=== PATIENT | female | born 1995 | race Caucasian/White ===

== ENCOUNTER 2016-10-24 17:47 | Emergency (ER) | payer OTHER ==
[~2016-10-24] VITALS: Ht 165.1 cm; Wt 61.5 kg
[~2016-10-24 17:47] MED LIST: BCPILLS PO
[2016-10-24 17:50] VITALS: TEMP 36.9; Ht 165.1 cm; Wt 61.5 kg
[2016-10-24] MEDS ORDERED: ETON1IMP2 EP (18:15)
[2016-10-24 18:26] LABS: URINE APPEARANCE CLOUDY (CLEAR); URINE BILIRUBIN NEG (NEG); URINE COLOR YELLOW; URINE EPITHELIAL CELL AUTO >30 /lpf (0-5); URINE NITRITE NEG (NEG); URINE PH 7.5 (4.5-7.5); UROBILINOGEN NEG (NEG); ZZUR CULT IF INDIC CLEAN CATCH NO
[2016-10-24 18:29] LABS: MANUAL MICROSCOPIC REQUIRED? NO; REVIEW REQ? NO
[2016-10-24] MEDS ORDERED: CEFTRIAXONE SOD 350MG/ML 1 GM VIAL IM ONE (19:03)
[2016-10-24] MEDS ORDERED: CEFTRIAXONE SOD INJ 250 MG/ML VIAL IM ONE (19:15)
[2016-10-24] MEDS ORDERED: AZITHROMYCIN 250 MG TAB PO ONE (19:15)
[2016-10-24] MEDS ORDERED: METR0.757 PV (19:42)
--- NOTE | 2016-10-24 19:43 | EMERGENCY ROOM VISIT NOTE ---
History First contact with patient: 17:59 Chief Complaint: HIP PAIN Stated Complaint: HIP,LOW BACK/STOMACH PAIN History of Present Illness The patient is a 21 year old female who presents to the Emergency Room with complaints of pain in her lower abdomen and urinary symptoms. The patient states that she has had intermittent pain in her lower abdomen with radiation to the back for the past several days. The patient states the pain sometimes radiates into her hips. She describes the pain as a cramping sensation and rates the discomfort a 3/10. The patient has also had trouble urinating and dysuria. She reports she has had abnormal yellowish vaginal discharge. She took a test at home which was negative. She has had a new sexual partner recently and is unsure of his sexual history. She denies any back pain , nausea, vomiting, fevers or chills. Review of Systems A complete 10-point Review of Systems was discussed with the patient, with pertinent positives and negatives listed in the History of Present Illness. All remaining Review of Systems questions can be considered negative unless otherwise specified. Social History Smoking Status: Never Smoker Current/Historical Medications Scheduled Etonogestrel (Nexplanon), 68 MG EP CONTINOUS Metronidazole Vaginal (Metronidazole Vaginal), 1 APPL PV HS Allergies Coded Allergies: [place] (Verified Allergy, Severe, ANAPHYLAXIS, 10/24/16) Physical Exam Vital Signs Date Time Temp Pulse Resp B/P Pulse Ox O2 Delivery O2 Flow Rate FiO2 10/24/16 19:49 85 16 124/74 99 10/24/16 17:50 36.9 78 17 126/79 96 Room Air Physical Exam VITALS: Vitals are noted on the nurse's note and reviewed by myself. Vital signs stable. GENERAL: This is a 21-year-old female, in no acute distress, nondiaphoretic, well-developed well-nourished. SKIN: Capillary reflex less than 2 seconds. HEART: Regular rate and rhythm without murmurs gallops or rubs. LUNGS: Clear to auscultation bilaterally without wheezes, rales or rhonchi. ABDOMEN: Positive bowel sounds x 4. Soft, nontender to palpation. PELVIC: External genitalia unremarkable. There is a moderate amount of whitish vaginal discharge. No evidence of cervicitis. No cervical motion or adnexal tenderness. NEURO: Patient was alert and oriented to person place and time. Medical Decision & Procedures Laboratory Results Test 10/24/16 00:00 10/24/16 18:10 Urine Color YELLOW Urine Appearance CLOUDY (CLEAR) Urine pH 7.5 (4.5-7.5) Urine Specific [place] 1.020 (1.000-1.030) Urine Protein NEG (NEG) Urine Glucose (UA) NEG (NEG) Urine Ketones NEG (NEG) Urine Occult Blood NEG (NEG) Urine Nitrite NEG (NEG) Urine Bilirubin NEG (NEG) Urine Urobilinogen NEG (NEG) Urine Leukocyte Esterase SMALL (NEG) Urine WBC (Auto) 1-5 /hpf (0-5) Urine RBC (Auto) 0-4 /hpf (0-4) Urine Hyaline Casts (Auto) 1-5 /lpf (0-5) Urine Epithelial Cells (Auto) >30 /lpf (0-5) Urine Bacteria (Auto) NEG (NEG) Urine Test NEG (NEG) Date/Time Source Procedure Growth Status 10/24/16 00:00 Vaginal Swab Trichomonas Preparation - Final Complete Medications Administered Medications (Trade) Dose Ordered Sig/Maribel Route Start Time Stop Time Status Last Admin Dose Admin Azithromycin (Zithromax Tab) 1,000 mg NOW ONCE PO 10/24/16 19:15 10/24/16 19:16 DC 10/24/16 19:14 1,000 MG Ceftriaxone Sodium (Rocephin Im) 997.5 mg STK-MED ONCE IM 10/24/16 19:03 10/24/16 19:07 DC 10/24/16 19:14 250 MG Medical Decision Differential diagnosis includes sexual transmitted infection, vaginal candidiasis, bacterial vaginosis, urinary tract infection, among others. The patient was evaluated as above. Urinalysis was not suggestive of infection. Urine was negative. Pelvic exam was performed and did show a moderate amount of discharge. Cultures were obtained and are pending. As the patient has had new sexual partners, she was offered empiric treatment for gonorrhea and chlamydia and did choose to proceed. She was given 250 mg Rocephin IM and 1 g Zithromax orally. Her discharge was suggestive of BV, the patient was given a prescription for Metrogel. The patient will be contacted if culture results become positive. She was instructed to follow-up with OB/ [facility] [facility]HICLE OPERATOR. She verbalized understanding of my assessment and treatment plan and was discharged home in good condition. Impression Primary Impression: Vaginal discharge Departure Information Dispostion Home / Self-Care Condition GOOD Prescriptions Metronidazole Vaginal (METRONIDAZOLE VAGINAL) 0.75 % Gel 1 APPL PV HS for 5 Days, #70 GM Prov: Estrella Sigala ., DANIEL 10/24/16 Referrals No Doctor, Assigned (PCP) Patient Instructions My [facility] Additional Instructions Use the metronidazole as prescribed. Call for culture results in 2-3 days if you do not hear anything from us sooner. Return to the ED with abdominal pain, fevers, or any worsening or new/ concerning symptoms.
[2016-10-24 19:49] VITALS: BP 124/74; PULSE 85; O2SAT 99
[2016-10-27 00:49] LABS: CHLAMYDIA TRACH RNA*** NOT DETECTED (NOT DETECTED); GC (NEIS GONORRHOEAE)RNA** NOT DETECTED (NOT DETECTED)
== END 2016-10-24 19:52 | disposition home or self-care (01) ==
LOC: C.EDB 17:49
DX: N89.8 Other specified noninflammatory disorders of vagina (principal)

== ENCOUNTER 2017-01-26 22:14 | Emergency (ER) | payer OTHER ==
[~2017-01-26] VITALS: Ht 165.1 cm; Wt 64.5 kg
[~2017-01-26 22:14] MED LIST changes: -BCPILLS PO; +ETON1IMP2 EP
[2017-01-26 22:18] VITALS: Ht 165.1 cm; Wt 64.5 kg
[2017-01-26] MEDS ORDERED: METRONIDAZOLE 250 MG TAB PO STA (23:51)
[2017-01-26] MEDS ORDERED: METR-162 PO (23:55)
[2017-01-27] MEDS ORDERED: AZITHROMYCIN 250 MG TAB PO ONE
[2017-01-27] MEDS ORDERED: CEFTRIAXONE SOD 350MG/ML 1 GM VIAL IM ONE
[2017-01-27 00:15] LABS: URINE APPEARANCE CLEAR (CLEAR); URINE BILIRUBIN NEG (NEG); URINE COLOR YELLOW; URINE NITRITE NEG (NEG); URINE PH 7.5 (4.5-7.5); URINE SPECIFIC GRAVITY 1.022 (1.000-1.030); UROBILINOGEN NEG (NEG); ZZUR CULT IF INDIC CLEAN CATCH NO
[2017-01-27 00:23] VITALS: BP 131/80; PULSE 94; TEMP 36.7; O2SAT 100
[2017-01-27 00:29] LABS: MANUAL MICROSCOPIC REQUIRED? NO; REVIEW REQ? NO
--- NOTE | 2017-01-27 03:34 | EMERGENCY ROOM VISIT NOTE ---
History First contact with patient: 22:24 Chief Complaint: ABDOMINAL PAIN Stated Complaint: LOWER BACK PAIN,CRAMPING,LOWER STOMACH PAIN History of Present Illness The patient is a 21 year old female who presents to the Emergency Room with complaints of lower abdominal cramping off and on for the past 3 weeks. The patient reports having some scant vaginal bleeding over the past 2 days. She is unsure if this is her period because she has Nexplanon and does not get a period. The patient does not have fever or chills. She is sexually active with a monogamous partner, but has not had intercourse in the past few weeks. She was treated for her symptoms with a course of Diflucan as an outpatient. She initially had some vaginal discharge that was thick, but this has minimized , and turned into scant blood. She rates her current discomfort a 2/10. No dysuria. Review of Systems More than 10 systems were reviewed and otherwise negative with the exception of history of present illness. Past Medical/Surgical History No chronic medical disease Family History No pertinent family history Social History Smoking Status: Never Smoker Housing Status: lives with family Current/Historical Medications Scheduled Etonogestrel (Nexplanon), 68 MG EP CONTINOUS Metronidazole (Flagyl), 500 MG PO BID Allergies Coded Allergies: [place] (Verified Allergy, Severe, ANAPHYLAXIS, 10/24/16) Physical Exam Vital Signs Date Time Temp Pulse Resp B/P (MAP) Pulse Ox O2 Delivery O2 Flow Rate FiO2 01/27/17 00:23 36.7 94 18 131/80 100 01/26/17 22:18 36.7 94 18 131/80 100 Room Air Pain Rating (0-10): 0 Physical Exam VITALS: Vitals are noted on the nurse's note and reviewed by myself. Vital signs stable. GENERAL: Well-developed, well-nourished, white female, who is in no acute distress and resting comfortably. Patient is cooperative with the examination. HEAD: Normocephalic atraumatic. NECK: Supple without nuchal rigidity. No lymphadenopathy. No thyromegaly. Cervical spine is nontender. HEART: Regular rate and rhythm without murmurs gallops or rubs. LUNGS: Clear to auscultation bilaterally without wheezes, rales or rhonchi. No retractions or accessory muscle use. ABDOMEN: Positive normal bowel sounds x 4. Soft, nontender, without masses or organomegaly. No guarding or rebound tenderness. : Examination was performed in the presence of female nursing master dyer. Normal-appearing external female genitalia. The vaginal vault is with a scant discharge. The vaginal rugae are very irritated along the posterior and inferior vaginal wall. There is some scant blood in the vault, which appears to be coming from these irritated areas. The cervix was identified and is without blood in the os. No ulcerations or significant drainage noted. MUSCULOSKELETAL: No muscle atrophy, erythema, or edema noted. Full range of motion without joint tenderness in all extremities. Medical Decision & Procedures Laboratory Results Test 01/26/17 23:10 01/26/17 23:35 Urine Color YELLOW Urine Appearance CLEAR (CLEAR) Urine pH 7.5 (4.5-7.5) Urine Specific [place] 1.022 (1.000-1.030) Urine Protein NEG (NEG) Urine Glucose (UA) NEG (NEG) Urine Ketones NEG (NEG) Urine Occult Blood NEG (NEG) Urine Nitrite NEG (NEG) Urine Bilirubin NEG (NEG) Urine Urobilinogen NEG (NEG) Urine Leukocyte Esterase NEG (NEG) Urine Test NEG (NEG) Date/Time Source Procedure Growth Status 01/26/17 23:35 Cervix Swab Trichomonas Preparation - Final Complete Medications Administered Medications (Trade) Dose Ordered Sig/Maribel Route Start Time Stop Time Status Last Admin Dose Admin Ceftriaxone Sodium (Rocephin Im) 1,000 mg NOW ONCE IM 01/27/17 00:00 01/27/17 00:01 DC 01/27/17 00:10 1,000 MG Azithromycin (Zithromax Tab) 1,000 mg NOW ONCE PO 01/27/17 00:00 01/27/17 00:01 DC 01/27/17 00:09 1,000 MG Metronidazole (Flagyl Tab) 500 mg NOW STAT PO 01/26/17 23:51 01/26/17 23:53 DC 01/27/17 00:09 500 MG ED Course Physical exam and history were performed. Nursing notes and EMR were reviewed. Patient appears to have very low pelvic discomfort for the past few weeks. She has been treated for a yeast infection. Urinalysis was performed and is without obvious signs of UTI. She is not . Because of this I did elect to perform a formal pelvic exam. On examination the patient does have irritation throughout the vaginal vault. Cultures were gathered and sent to the lab. Clinically her symptoms correlate with irritation of the vaginal vault from unknown etiology. The patient was given 1 g IM Rocephin and 1 g oral Zithromax here in the department. She will also be empirically started on Flagyl pending cultures. I suspect she is likely experiencing a bacterial infection as the likely etiology of her symptoms. The patient was asked to follow with [facility] for further care and management. She was otherwise invited back to the ER and voiced understanding of this plan. The chart was completed utilizing [employer] Speech Voice Recognition Software. Grammatical errors, random word insertions, pronoun errors, and incomplete sentences are an occasional consequence of this system due to software limitations, ambient noise, and hardware issues. Any formal questions or concerns about the content, text, or information contained within the body of this dictation should be directly addressed to the provider for clarification. . Medical Decision Differential diagnosis: Etiologies such as ectopic , dysfunction uterine bleeding, bleeding dyscrasia, trauma, infection, as well as others were entertained. Impression Primary Impression: Vaginal irritation Departure Information Dispostion Home / Self-Care Condition GOOD Prescriptions Metronidazole (FLAGYL) 500 Mg Tab 500 MG PO BID for 7 Days, #14 TAB Prov: Andi Moreno PA-C 01/26/17 Forms HOME CARE DOCUMENTATION FORM, IMPORTANT VISIT INFORMATION Patient Instructions My [facility] Additional Instructions You were seen and evaluated today on an emergency basis only. This is not a substitute for, or an effort to provide, complete comprehensive medical care. It is not possible to recognize and treat all injuries or illnesses in a single emergency department visit. For this reason it is recommended that you followup with [facility] with any ongoing or persistent symptoms. Metronidazole(Flagyl) 500mg: Take one pill twice daily for 7 days for your infection. DO NOT drink alcohol or take alcohol containing products with this medication. Any medication can cause an allergic reaction, stop the pills immediately and return to the ER for rash, hives, breathing difficulties, or swelling. You are welcome to return to the emergency department anytime with new, worsening, or concerning symptoms.
== END 2017-01-27 00:27 | disposition home or self-care (01) ==
LOC: C.EDB 22:15 → C.EDA 01-27 00:27
DX: N89.8 Other specified noninflammatory disorders of vagina (principal); Z79.3 Long term (current) use of hormonal contraceptives

== ENCOUNTER 2021-03-01 04:41 | Inpatient (IN) ==
[2021-03-01] MEDS ORDERED: LACTATED RINGER'S 1,000 ML IV SCH ×2 (05:15→07:30)
[2021-03-01] MEDS ORDERED: CITRIC ACID/SODIUM CITRATE 15 ML UDC PO ONE (05:15)
--- NOTE | 2021-03-01 05:20 | History & Physical Report ---
Date of Service March 01, 2021 Assessment & Plan (1) Previous delivery affecting , antepartum: 25yo at 37.0 weeks with Hx LTCS x2. Present with gross PROM. 1. Fetus: Reactive NST 2. Labor: Gross ROM. Proceed with LTCS 3. Vitals: WNL (2) Encounter for supervision of normal in multigravida, antepartum: (3) PROM (premature rupture of membranes): History of Present Illness Primary Care Provider: Ben Vega 25yo at 37.0 weeks with Hx LTCS x2. Present with gross PROM. Allergies Allergy/AdvReac Type Severity Reaction Status Date / Time dayana Allergy Severe Anaphylaxis Verified 02/26/21 13:56 Home Medications Medication Instructions Recorded Confirmed Type prenat.vits,aleksandra,[id number] 1 tab PO DAILY 08/03/20 02/26/21 History azithromycin 250 mg PO QAM 02/26/21 02/26/21 History valacyclovir [Valtrex] 1,000 mg PO BID PRN 02/26/21 02/26/21 History Patient History Medical History Mitral regurgitation mild per 05/2018 echo Syncope suspected vasovagal 05/2018 after prolonged standing during wedding; cardiac workup unremarkable and patient told no further evaluation/follow-up needed Surgical History History of section 09/29 DISTRESS DONE UNDER GA 06/2018 Family History Grandmother Family history of diabetes mellitus Grandfather Family history of diabetes mellitus Social History (Updated 08/03/20 @ 14:09 by Sujata Griffith) Smoking Status: Never smoker Second Hand Exposure: No; Hx Alcohol Use: No Hx Substance Use: No Preferred Language: Portuguese Communication Ability: Effective Wrap Yarn Sorter Required: No Beliefs That Will Affect Care: None marital status: marital status details: Miguel Angel(30) [phone] Current Living Situation: Family Current Living Situation Comment: lives with spouse and children Other Information That Helps Us Care for You: No Feels Safe at Home: Yes Assistive Devices: None Physical Exam Constitutional: WD/WN, vitals as above Gastrointestinal (Abdomen): Percussion/Palpation: abdomen soft; abdomen nontender, no guarding and abdomen not rigid Psychiatric: A+Ox3, euthymic affect Genitourinary: OB Exam Abdomen: + vertex Manual OB Exam: + cervical dilation and + amniotic fluid clear OB Exam Monitor Tracing: + external FHT monitor used, + external uterine monitor used, + category I and + normal FHT variability; no early decelerations present, no late decelerations present and no variable decelerations Results & Data ([facility]) Vital Signs (Past 12 Hours) Vital Signs Pulse BP 03/01/21 04:59 82 128/79 Coding Level of Care Code None Diagnoses Previous delivery affecting , antepartum O34.219 Encounter for supervision of normal in multigravida, antepartum Z34.80 PROM (premature rupture of membranes) O42.90
[2021-03-01] MEDS ORDERED: fentaNYL citrate 100 MCG/2 ML VIAL ONE (05:47)
[2021-03-01] MEDS ORDERED: MoRPHine SULFATE PF 1 MG/ML 10 ML AMP/VIAL ONE (05:47)
--- NOTE | 2021-03-01 05:55 | Anesthesiology Consultation ---
Date of Service March 01, 2021 Assessment & Plan (1) Encounter for pre-operative examination: Chart Review Chart Review: Acceptable Risk for Surgery and Patient NOT seen in Pre Admission Testing Consults Requested none History Surgery Operation Date: 03/01/21 06:00 Proposed Procedures p Section in LD - Miguel Angel Aguilar MD Height/Weight Height: 5 ft 5 in Weight: 86.183 kg Allergies Allergy/AdvReac Type Severity Reaction Status Date / Time dayana Allergy Severe Anaphylaxis Verified 02/26/21 13:56 Medications Home Medications Medication Instructions Recorded Confirmed Last Taken prenat.vits,aleksandra,shk-ieos-[id number] 1 tab PO DAILY 08/03/20 02/26/21 Unknown azithromycin 250 mg PO QAM 02/26/21 02/26/21 Unknown valacyclovir [Valtrex] 1,000 mg PO BID PRN 02/26/21 02/26/21 Unknown NPO Date Last Intake of Fluids: 03/01/21 Time Last Intake of Fluids: 02:30 Date Last Intake of Solids: 02/28/21 Time Last Intake of Solids: 18:00 Past Medical History Medical History Mitral regurgitation mild per 05/2018 echo Syncope suspected vasovagal 05/2018 after prolonged standing during wedding; cardiac workup unremarkable and patient told no further evaluation/follow-up needed Past Family History Family History Grandmother Family history of diabetes mellitus Grandfather Family history of diabetes mellitus Past Surgical History Surgical History History of section 2013 22 DISTRESS DONE UNDER GA 06/2018 Social History Smoking Status: Never smoker Hx Alcohol Use: No Hx Substance Use: No substance use type: does not use Physical Exam Vital Signs Last Vital Signs Temp 37.1 C 03/01/21 05:05 Pulse 82 03/01/21 04:59 Resp 18 03/01/21 05:05 BP 128/79 03/01/21 04:59
[2021-03-01] MEDS ORDERED: CITRIC ACID/SODIUM CITRATE 15 ML UDC PO SCH (06:00)
[2021-03-01 06:13] LABS: Hematocrit (blood only) 32.6 % (37-47); Hemoglobin 10.7 g/dL (12.0-16.0); Mean Corpuscular Hemoglobin 28.6 pg (25-34); Mean Corpuscular Volume 87.2 fL (80-100); Mean Platelet Volume 8.8 fL (7.4-10.4); Platelet Count 363 K/uL (130-400); RDW Coefficient of Variation 13.4 % (11.5-14.5); Red Blood Count 3.74 M/uL (4.2-5.4); White Blood Count 15.01 K/uL (4.8-10.8)
[2021-03-01] MEDS ORDERED: ONDANSETRON INJ 2 MG/ML 2 ML VIAL ONE (06:13)
[2021-03-01 06:14] LABS: Mean Corpuscular Hgb Conc 32.8 g/dL (32-36)
[2021-03-01] MEDS: ceFAZolin 2000MG 2,000 MG/15 ML SYR IV ONE ×3 (06:26→10:15)
[2021-03-01] MEDS ORDERED: PHENYLEPHRINE 100MCG/ML 5ML SYR ONE (06:31)
[2021-03-01] MEDS ORDERED: OXYTOCIN 10 UNITS/ML VIAL ONE ×6 (06:47→07:01)
[2021-03-01] MEDS ORDERED: ePHEDrine sulfate 50 MG/ML AMP IV PRN (06:50)
[2021-03-01] MEDS ORDERED: MoRPHine SULFATE PF 1 MG/ML 10 ML AMP/VIAL INT SPINAL ONE (06:50)
[2021-03-01] MEDS ORDERED: ONDANSETRON INJ 2 MG/ML 2 ML VIAL IV PRN (06:50)
[2021-03-01] MEDS ORDERED: PROMETHAZINE HCL 25 MG in SODIUM CHLORIDE 0.9% 50 ML IV PRN (06:50)
[2021-03-01] MEDS ORDERED: HYDROmorphone INJ 0.5 MG/0.5 ML SYR IV PRN (06:50)
[2021-03-01] MEDS ORDERED: NALOXONE HCL 1 MG in SODIUM CHLORIDE 0.9% 1000ML 1,000 ML IV PRN (06:50)
[2021-03-01] MEDS ORDERED: ACETAMINOPHEN 1000 MG/100 ML IV IV PRN (06:50)
[2021-03-01] MEDS ORDERED: NALOXONE HCL 0.08 MG in SYRINGE 1.8 ML IV PRN (06:50)
[2021-03-01] MEDS ORDERED: LACTATED RINGER'S 500 ML IV PRN (06:50)
[2021-03-01] MEDS ORDERED: NALOXONE HCL 0.4 MG/1 ML VIAL/CARP IV PRN (06:50)
[2021-03-01] MEDS ORDERED: SODIUM CHLORIDE 0.9% 1000ML 1,000 ML IV SCH (07:00)
[2021-03-01] MEDS ORDERED: DC INTRASPINAL MORPHINE SCH (07:00)
[2021-03-01] MEDS ORDERED: NO NARCOTICS OR SEDATIVES SCH (07:00)
[2021-03-01] MEDS ORDERED: KETOROLAC 30 MG/ML VIAL ONE (07:05)
[2021-03-01] MEDS ORDERED: diphenhydrAMINE 50 MG/ML VIAL ONE (07:08)
[2021-03-01] MEDS ORDERED: ePHEDrine sulfate 50 MG/ML SYR ONE (07:14)
[2021-03-01] MEDS ORDERED: HYDROCORTISONE ACETATE 25 MG SUPP PR PRN (07:20)
[2021-03-01] MEDS ORDERED: SUPERCREAM 0.870% 15 GM JAR EXT PRN (07:20)
[2021-03-01] MEDS ORDERED: MAGNESIUM HYDROXIDE SUSP 30 ML UDC PO PRN (07:20)
[2021-03-01] MEDS ORDERED: SENNA 8.6 MG TAB PO PRN (07:20)
[2021-03-01] MEDS ORDERED: BENZOCAINE 20% AER SPR 82.5 GM CAN EXT PRN (07:20)
--- NOTE | 2021-03-01 07:20 | Post Operative Brief Note ---
PG Immediate Post Op with CF Date of Surgery March 01, 2021 Pre & Post Diagnosis Operation Date: 03/01/21 06:00 Pre-Op Diagnosis: 1. Previous Delivery 2. Labor; Gross SROM Post-Op Diagnosis: Same as pre op I identified the patient and participated in the time-out.: Yes Procedure Operation Date: 03/01/21 06:00 Actual Procedures p Repeat Section for the of a live female child at 0643 - Miguel Angel Aguilar MD Surgeon Miguel Angel Aguilar MD Textile Designer None Estimated Blood Loss 500 Findings Consistent with Post-Op Diagnosis Specimens Specimen Description: 1.) Placenta - hold 2.) Cord Blood - Drains [place] Catheter
[2021-03-01] MEDS ORDERED: DIPHTHERIA/TETANUS/PERTUSSIS 0.5 ML SYR/VIAL IM ONE (08:00)
[2021-03-01] MEDS: OXYTOCIN 20 UNITS in LACTATED RINGER'S 1,000 ML IV SCH ×2 (09:07→17:41)
[2021-03-01] MEDS: SIMETHICONE 80 MG CHEW PO SCH ×3 (10:16→20:12)
[2021-03-01] MEDS: FERROUS SULFATE 325 MG TAB PO SCH (10:16)
[2021-03-01] MEDS: DOCUSATE SODIUM 100 MG CAP PO SCH ×2 (10:16→20:11)
[2021-03-01] MEDS: PRENATAL VITAMIN 1 TAB PO SCH (10:16)
[2021-03-01] MEDS: KETOROLAC 30 MG/ML VIAL IV PRN ×2 (15:20→22:20)
[2021-03-01] MEDS: diphenhydrAMINE 50 MG/ML VIAL IV PRN ×2 (16:50→22:27)
[2021-03-02] MEDS ORDERED: diphenhydrAMINE 50 MG/ML VIAL IV PRN (00:51)
[2021-03-02] MEDS ORDERED: ONDANSETRON INJ 2 MG/ML 2 ML VIAL IV PRN (00:51)
[2021-03-02] MEDS ORDERED: diphenhydrAMINE Capsule 25 MG CAP PO PRN (00:51)
[2021-03-02] MEDS ORDERED: KETOROLAC 30 MG/ML VIAL IV PRN (00:51)
[2021-03-02] MEDS ORDERED: PROMETHAZINE HCL 25 MG in SODIUM CHLORIDE 0.9% 50 ML IV PRN (00:51)
[2021-03-02] MEDS: oxyCODONE/ACETAMINOPHEN 5mg/325mg TAB PO PRN ×6 (04:06→23:20)
[2021-03-02] MEDS: IBUPROFEN 600 MG TAB PO PRN ×4 (04:06→20:31)
[2021-03-02 06:25] LABS: Basophils # (auto) 0.02 K/uL (0-0.2); Basophils % (auto) 0.1 %; Eosinophils # (auto) 0.11 K/uL (0-0.5); Eosinophils % (auto) 0.8 %; Hematocrit (blood only) 25.9 % (37-47); Hemoglobin 8.4 g/dL (12.0-16.0); Immature Granulocytes # (auto) 0.06 K/uL (0.00-0.02); Immature Granulocytes % (auto) 0.4 %; Lymphocytes # (auto) 2.46 K/uL (1.2-3.4); Lymphocytes % (auto) 17.2 %; Mean Corpuscular Hemoglobin 29.2 pg (25-34); Mean Corpuscular Hgb Conc 32.4 g/dL (32-36); Mean Corpuscular Volume 89.9 fL (80-100); Mean Platelet Volume 8.5 fL (7.4-10.4); Monocytes # (auto) 1.06 K/uL (0.11-0.59); Monocytes % (auto) 7.4 %; Neutrophils # (auto) 10.57 K/uL (1.4-6.5); Neutrophils % (auto) 74.1 %; Platelet Count 251 K/uL (130-400); RDW Coefficient of Variation 13.7 % (11.5-14.5); RDW Standard Deviation 45.5 fL (36.4-46.3); Red Blood Count 2.88 M/uL (4.2-5.4); White Blood Count 14.28 K/uL (4.8-10.8)
--- NOTE | 2021-03-02 06:26 | Obstetrical Progress Note ---
Date of Service March 02, 2021 Assessment & Plan (1) S/P section: POD#1 doing well. Continue routine postop care. Subjective Ambulation: ambulating normally Voiding: no voiding problems Diet Tolerance:: regular diet Lochia:: Moderate POD#1 doing well Review of Systems All systems reviewed & are unremarkable except as noted in HPI & below Physical Exam Constitutional WD/WN, vitals as above no acute distress Respiratory normal respiratory effort Cardiovascular Rate/Rhythm: regular rate and regular rhythm Gastrointestinal (Abdomen) Inspection/Auscultation: abdomen normal to inspection; abdomen not distended Percussion/Palpation: abdomen soft Genitourinary OB Exam Abdomen: + fundal height Fundus: + firm; not tender Results & Data ([facility]) Vital Signs (Past 12 Hours) Vital Signs Temp Pulse Resp BP Pulse Ox 03/02/21 04:00 36.6 C 65 16 98/57 L 97 03/02/21 00:20 18 95 03/01/21 23:30 18 97 03/01/21 22:53 36.8 C 83 16 106/66 100 03/01/21 22:20 18 98 03/01/21 21:25 16 96 03/01/21 20:05 36.6 C 69 18 110/68 99 03/01/21 19:10 18 99
[2021-03-02] MEDS: SIMETHICONE 80 MG CHEW PO SCH ×4 (08:01→20:30)
[2021-03-02] MEDS: PRENATAL VITAMIN 1 TAB PO SCH (08:02)
[2021-03-02] MEDS: DOCUSATE SODIUM 100 MG CAP PO SCH ×2 (08:02→20:30)
[2021-03-02] MEDS: FERROUS SULFATE 325 MG TAB PO SCH (08:02)
[2021-03-02] MEDS ORDERED: bisacodyL 5 MG TABEC PO SCH (20:00)
[2021-03-03] MEDS: oxyCODONE/ACETAMINOPHEN 5mg/325mg TAB PO PRN ×2 (03:04→07:33)
[2021-03-03] MEDS: IBUPROFEN 600 MG TAB PO PRN ×2 (03:05→07:32)
[2021-03-03 06:24] LABS: Hematocrit (blood only) 27.4 % (37-47); Hemoglobin 8.7 g/dL (12.0-16.0)
--- NOTE | 2021-03-03 07:10 | Obstetrical Progress Note ---
Date of Service March 03, 2021 Assessment & Plan (1) S/P section: Postoperative from section patient meets discharge criteria as she is ambulating well tolerating an oral diet has minimal bleeding and no extremity pain. Discharge instructions were reviewed and prescriptions were sent to her pharmacy of choice patient advised to call with any concerns and follow-up in the office discussed Subjective Ambulation: ambulating normally Voiding: no voiding problems Diet Tolerance:: regular diet Lochia:: Small Physical Exam incision cdi, ext neg Results & Data ([facility]) Vital Signs (Past 12 Hours) Vital Signs Temp Pulse Resp BP Pulse Ox 03/03/21 00:00 97.5 F L 83 16 106/68 100
[2021-03-03] MEDS ORDERED: bisacodyL 10 MG SUPP PR PRN (07:20)
[2021-03-03] MEDS: SIMETHICONE 80 MG CHEW PO SCH (07:32)
[2021-03-03] MEDS: PRENATAL VITAMIN 1 TAB PO SCH (07:32)
[2021-03-03] MEDS: FERROUS SULFATE 325 MG TAB PO SCH (07:32)
[2021-03-03] MEDS: DOCUSATE SODIUM 100 MG CAP PO SCH (07:32)
--- NOTE | 2021-03-04 19:48 | Discharge Summary (DS) ---
DATE OF ADMISSION: 03/01/2021 DATE OF DISCHARGE: 03/03/2021 HOSPITAL COURSE: The patient was admitted for spontaneous rupture of membranes and history x2, and a repeat low transverse was performed without difficulty or complications. The pa tiechristi remained in-house until postoperative day #2, at which time she was found to be in stable condi tion for discharge and was discharged home with both written and verbal discharge instructions in sta ble condition. Plan for a followup at 6 weeks or as otherwise needed. Job ID: [id number]
--- NOTE | 2021-03-04 20:41 | Operative Report (OR) ---
DATE OF PROCEDURE: 03/01/2021 PROCEDURE: Repeat low transverse section. SURGEON: Miguel Angel Aguilar MD. PREOPERATIVE DIAGNOSES: 1. Early term at 37 weeks 3 days gestational age. 2. Spontaneous rupture of membranes. 3. History of prior section with planned repeat. POSTOPERATIVE DIAGNOSES: 1. Early term at 37 weeks 3 days gestational age. 2. Spontaneous rupture of membranes. 3. History of prior section with planned repeat. 4. Status post procedure. ESTIMATED BLOOD LOSS: 500 mL. DRAINS: [place]ino catheter. FLUIDS: Continuous lactated Ringer. URINE OUTPUT: Per Chino catheter. COMPLICATIONS: None. FINDINGS: Viable female with weight of 7 pounds 9.3 ounces and Apgars of 9 and 9 at one and f criss minutes respectively. INDICATIONS: Bee is a 25-year-old G3, P2-0-0-2, admitted at 37 weeks gestational age with spontan eous rupture of membranes with history of prior x2 and the patient was consented for the pr ocedure and the procedure was performed without complication. DESCRIPTION OF PROCEDURE: The patient was taken to the operating room after consents were ensured. Upon presentation, she was properly identified. Spinal anesthesia was obtained without difficulty. The patient was then prepped and draped in normal sterile fashion. A preprocedural timeout was perfo rmed. A Pfannenstiel incision was then made with a knife. This was carried down to underlying fascia with the Bovie. Fascia was then nicked at the midline with a knife and extended laterally in each directi on with pickmax and Russell scissors. Superior aspect of the fascia was grasped with Geremias x2, elevat ed off the underlying rectus muscles using blunt dissection. The inferior aspect of the fascia was g rasped with Geremias x2, elevated off the underlying rectus muscles using blunt dissection. The midli ne was then entered with separation of the muscles with a Berta and then blunt entry. The abdomen wa s then placed on stretch to provide adequate room for delivery. Bladder blade was inserted. Bladder flap was created in normal fashion. A low transverse uterine incision was then made with a knife. Head of the was noted to be in cephalic position, delivered through hysterotomy without difficulty, body and shoulders quickly foll owed. was noted to be vigorous upon delivery and a 1 minute delayed cord clamping was initia anjali. Cord was then double clamped and cut. was taken over the waiting nursery staff for fur ther evaluation and noted to be vigorous. Cord blood was obtained. Attention was then turned to del cristy of the placenta, which was delivered intact, 3-vessel cord, gentle cord traction. Uterus was exteriorized. Several passes were made to remove any remaining membranes with a dry lap. The hysterotomy was then reapproximated with 0 Vicryl continuous running lock stitch. A second imbr icating layer was performed. The posterior cul-de-sac was then cleaned of clots and debris. The [place] michaela was then returned to the maternal abdomen and the bilateral cul-de-sacs were cleaned of clots and debris. Hysterotomy was then reinspected and noted to be hemostatic. The subcutaneous, muscle and fascial layers were all inspected and were noted to be hemostatic. Fasc ia was then reapproximated with 0 Vicryl continuous running stitch. Subcutaneous layer was reapproxi mated with a 2-0 plain. The skin was reapproximated with 3-0 Vicryl on a Oracio needle in subcuticula r stitch. Dermabond was placed on top. Needle, sponge, and instrument counts were correct at the co mpletion of the case. Both mother and were stable in the immediate post-delivery period. Job ID: [id number]
--- NOTE | 2021-03-05 13:08 | Anesthesiology Progress Note ---
Date of Service March 01, 2021 Anesthesia Post Procedure Pain Intensity Bilateral Abdomen: Pain Intensity: 1 Transfer of Care Handoff Completed per policy Notes Mental Status: alert / awake / arousable and participated in evaluation Nausea / Vomiting: adequately controlled Pain: adequately controlled Airway Patency, RR, SpO2: stable & adequate BP & HR: stable & adequate Hydration State: stable & adequate Neuraxial Anesthesia: was administered and sensory block is resolving Anesthetic Complications: no major complications apparent and Pt Satisfied with anesthetic care
== END 2021-03-03 10:00 | disposition home or self-care (01) | DRG 788 ==
LOC: OPB 04:41 → 4S1 04:47 → 4S2 11:22

== ENCOUNTER 2023-07-03 05:34 | Inpatient (IN) ==
--- NOTE | 2023-06-26 12:40 | Anesthesiology Consultation ---
Date of Service June 26, 2023 Assessment & Plan (1) Encounter for pre-operative examination: Chart Review Chart Review: harp action assembler initiated -Infectious Disease screening: Per PAT nursing assessment on 06/26/23. No known infectious disease contacts in past 10 days or current infectious disease symptoms. No recent travel outside the country. Repeat 03/01/2021 = done under SAB at L3. With 1 attempt. Urgent C- section for rupture of membranes with history of prior History Surgery Operation Date: 07/03/23 09:20 Proposed Procedures p Section (Delivery of Baby Through Abdominal Incision) - Soila Dwyer MD, FACOG s with Bilateral Tubal Ligation - Soila Dwyer MD, FACOG Height/Weight Height: 5 ft 5 in Weight: 86.183 kg Allergies Allergy/AdvReac Type Severity Reaction Status Date / Time dayana Allergy Severe Anaphylaxis Verified 06/26/23 11:21 Medications Home Medications Medication Instructions Recorded Confirmed Last Taken prenat.vits,aleksandra,ipa-[id number] 1 tab PO DAILY PRN Other 08/03/20 06/26/23 Unknown docusate sodium 50 mg capsule 50 mg PO QAM 06/26/23 06/26/23 Unknown (Stool Softener) iron 1 dose PO QAM 06/26/23 06/26/23 Unknown levothyroxine 25 mcg tablet 25 mcg PO QAM 06/26/23 06/26/23 Unknown (Synthroid) Past Medical History Medical History Anxiety and depression Bipolar disorder History of migraine Hypothyroidism Mitral regurgitation mild per 05/2018 echo depression Schizophrenia Syncope suspected vasovagal 05/2018 after prolonged standing during wedding; cardiac workup unremarkable and patient told no further evaluation/follow-up needed Past Family History Family History Grandmother Family history of diabetes mellitus Grandfather Family history of diabetes mellitus Mother PONV (postoperative nausea and vomiting) Denies family history of Ovarian cancer Breast cancer Colorectal cancer Past Surgical History Surgical History (Updated 06/26/23 @ 12:39 by Gege Nielson PA-C) History of section - 2013 2/2 DISTRESS DONE UNDER GA - 06/2018 - 2020 Social History Smoking Status: Never smoker Do You Dip or Chew Tobacco: No Hx Alcohol Use: No Hx Substance Use: No substance use type: does not use Lab Results Anesthesia Preop Results Results Anesthesia Widget: WBC 13.64 K/ul (4.8-10.8) H 05/29/23 Hgb 11.7 g/dl (12.0-16.0) L 05/29/23 Hct 35.2 % (37.0-47.0) L 05/29/23 Plt 286 K/uL (130-400) 05/29/23 Na 133 mmol/L (136-145) L 05/29/23 K 3.8 mmol/L (3.5-5.1) 05/29/23 Cl 102 mmol/L (98-107) 05/29/23 CO2 24 mmol/L (21-32) 05/29/23 BUN 8 mg/dl (6-23) 05/29/23 Creat 0.52 mg/dl (0.6-1.2) L 05/29/23 Glucose Level 89 mg/dl (70-99(Fasting)) 05/29/23 PT 10.2 Seconds (9.0-12.0) 05/29/23 PTT 25.4 Seconds (21.0-31.0) 05/29/23 INR 0.9 (0.9-1.1) 05/29/23 Urine Color Yellow 05/29/23 Urine Appearance Clear (Clear) 05/29/23 Urine pH 7.0 (4.5-7.5) 05/29/23 Urine Specific [place] 1.018 (1.000-1.030) 05/29/23 Urine Protein Trace (Negative) H 05/29/23 Urine Glucose (UA) Negative (Negative) 05/29/23 Urine Ketones Trace (Negative) H 05/29/23 Urine Blood Negative (Negative) 05/29/23 Urine Nitrite Negative (Negative) 05/29/23 Urine Bilirubin Negative (Negative) 05/29/23 Urine Urobilinogen Negative (Negative) 05/29/23 Urine Leukocyte Esterase Negative (Negative) 05/29/23 Urine WBC (Auto) 1-5 /hpf (0-5) 05/29/23 Urine RBC (Auto) 0-4 /hpf (0-4) 05/29/23 Urine Hyaline Casts (Auto) 1-5 /lpf (0-5) 05/29/23 Urine Epithelial Cells (Auto) >30 /lpf (0-5) H 05/29/23 Urine Bacteria (Auto) 1+ (Negative) H 05/29/23 Blood Type A Positive 05/29/23 Antibody Screen NEGATIVE 05/29/23 Testing Laboratory Results 05/29/23= URINE CULTURE: Lactobacillus species, 80,000 CFU/ml Electrocardiogram Date: 05/29/23 Findings: + NSR @ (81bpm) Chest X-Ray Date: 05/29/23 Findings: + NAD Echocardiogram Date: 06/05/18 LVEF 55%. Mild MR. Physiologic ME.
--- NOTE | 2023-06-30 10:47 | History & Physical Report ---
Date of Service June 30, 2023 Assessment & Plan (1) Previous delivery affecting , antepartum: (2) Sterilization consult: (3) with 39 completed weeks gestation: Plan Patient presents for repeat c/s #4 and bilateral salpingectomy. She understands the permanence of sterilization and she has other options for LTRC. STerilization papers have been signed. The risks of surgery were discussed with the patient including the risks of anesthesia, bleeding requiring transfusion, infection, poor wound healing, urinary retention, damage to surrounding structures including bowels, bladder, vessels, nerves and ureters that may require further surgery, hospitalization or intervention, injury to baby. The other risks of any surgery were discussed including heart attack, blood clots, stroke or . Consent reviewed and signed. Surgery planned for Tuesday 07/03. History of Present Illness Chief Complaint: repeat c/s Primary Care Provider: MICHAEL Yañez Patient is a 27yowf who presents at 39 2/7 weeks for repeat c/s. She has had three previous c/s. The first was for distress with general anesthesia. 2 and 3 were repeats. She is requesting TL Patient has significant psych history listed as schizophrenia, bipolar d/o , anxiety and depression and PP depression. Patient had some significant issues earlier in the and was at one point on several medications. She has d/c all of these under the care of her physician. She notes alot of this was associated with her job which she has left. Notes she is in a much better place. Notes her mood is stable and good. and Delivery Plans Prior Section affecting delivery x 3 - Scheduled repeat at 39 weeks with tubal ligation. C/S WITH TUBAL SCHEDULED FOR 07/03/[address] HUMPHREY AND DR. MOORE ASSIST Hypothyroidism following prior . 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 NON-REACTIVE (NON-REACTIVE) 12/16/22 Hepatitis C Antibody (EIA) NON-REACTIVE (NON-REACTIVE) 12/16/22 HIV (1&2) Ab and P24 Ag, 4th Gener Neg (Neg) 08/14/20 HIV (1&2) Ag and Ab Confirmation NON-REACTIVE (NON-REACTIVE) 12/16/22 Glucose 1 Hour 50 gm Load 121 mg/dl (70-130) 04/19/23 OB Optional Labs: Chlamydia trachomatis RNA Not Detected (NotDetected) 12/16/22 Neisseria gonorrhoeae RNA Not Detected (NotDetected) 12/16/22 Thyroid Stimulating Hormone (TSH) 2.64 uIU/mL (0.30-4.50) 03/21/23 Labs Reviewed: CF/SMA negative in prior (01/31/18) maximilian cfdna-low risk--mln GBS negative--akh Allergies Allergy/AdvReac Type Severity Reaction Status Date / Time dayana Allergy Severe Anaphylaxis Verified 06/30/23 13:22 Home Medications Medication Instructions Recorded Confirmed Type prenat.vits,aleksandra,xkv-[id number] 1 tab PO DAILY PRN Other 08/03/20 06/26/23 History docusate sodium 50 mg capsule 50 mg PO QAM 06/26/23 06/26/23 History (Stool Softener) levothyroxine 25 mcg tablet 25 mcg PO QAM 06/26/23 06/26/23 History (Synthroid) ferrous sulfate [Iron (ferrous PO 06/30/23 06/30/23 History sulfate)] Patient History Medical History Hypothyroidism Schizophrenia Bipolar disorder Anxiety and depression History of migraine depression Mitral regurgitation mild per 05/2018 echo Syncope suspected vasovagal 05/2018 after prolonged standing during wedding; cardiac workup unremarkable and patient told no further evaluation/follow-up needed Surgical History History of section - 2013 2/2 DISTRESS DONE UNDER GA - 06/2018 - 2020 Family History Grandmother Family history of diabetes mellitus Grandfather Family history of diabetes mellitus Mother PONV (postoperative nausea and vomiting) Denies family history of Ovarian cancer Breast cancer Colorectal cancer Social History Smoking Status: Never smoker Second Hand Exposure: No; Do You Dip or Chew Tobacco: No; Hx Alcohol Use: No Hx Substance Use: No Preferred Language: Lithuanian Communication Ability: Effective Chief Cook Required: No Beliefs That Will Affect Care: None marital status: marital status details: Miguel Angel(30) [phone] Current Living Situation: Family Current Living Situation Comment: lives with spouse and children, 1 cat ( litter changing) current occupational status: employed 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 Feels Safe at Home: Yes Assistive Devices: None OB History Past Pregnancies Del. Date GA wks Lbr Lgth wt Sex Type del Anes Place Del Prov ? Comment 06/25/14 38 6lb 7oz F General Other BRIAN Oz No Emergency C/S due to decreased FHT, low amniotic fluid 07/13/18 39 7lb 1oz F Spinal [facility] Dr. Mack No 03/01/21 37 7lb 9oz F Spinal [facility] Dr. Aguilar. No Physical Exam Constitutional: WD/WN, vitals as above Gastrointestinal (Abdomen): soft, gravid, nt Psychiatric: A+Ox3, euthymic affect Coding Level of Care Code None Diagnoses Previous delivery affecting , antepartum O34.219 Sterilization consult Z30.09 with 39 completed weeks gestation Z3A.39
[2023-07-03] MEDS ORDERED: SODIUM CHLORIDE 0.9% 250 ML IV PRN (05:52)
[2023-07-03] MEDS ORDERED: LACTATED RINGER'S 1,000 ML IV SCH ×2 (06:00→09:47)
[2023-07-03] MEDS ORDERED: ceFAZolin 2000MG 2,000 MG/15 ML SYR IV SCH (06:00)
[2023-07-03 06:39] LABS: Basophils # (auto) 0.05 K/uL (0.00-0.20); Basophils % (auto) 0.3 %; Eosinophils # (auto) 0.08 K/uL (0.00-0.50); Eosinophils % (auto) 0.6 %; Hematocrit (blood only) 34.1 % (37.0-47.0); Hemoglobin 11.3 g/dl (12.0-16.0); Immature Granulocytes % (auto) 0.7 %; Lymphocytes # (auto) 2.56 K/uL (1.20-3.40); Lymphocytes % (auto) 17.8 %; Mean Corpuscular Hemoglobin 29.7 pg (25.0-34.0); Mean Corpuscular Hgb Conc 33.1 g/dL (32.0-36.0); Mean Corpuscular Volume 89.7 fL (80.0-100.0); Mean Platelet Volume 9.4 fL (9.4-12.4); Monocytes # (auto) 1.18 K/uL (0.11-0.59); Monocytes % (auto) 8.2 %; Neutrophils # (auto) 10.41 K/uL (1.40-6.50); Neutrophils % (auto) 72.4 %; Platelet Count 294 K/uL (130-400); RDW Coefficient of Variation 14.6 % (11.5-14.5); RDW Standard Deviation 47.4 fL (36.4-46.3); White Blood Count 14.38 K/ul (4.8-10.8)
[2023-07-03] MEDS ORDERED: OXYTOCIN 10 UNITS/ML VIAL ONE (06:43)
[2023-07-03] MEDS ORDERED: PHENYLEPHRINE 100MCG/ML 5ML SYR ONE (06:43)
[2023-07-03] MEDS ORDERED: ONDANSETRON INJ 2 MG/ML 2 ML VIAL ONE (06:43)
[2023-07-03] MEDS ORDERED: MoRPHine SULFATE PF 1 MG/ML 10 ML AMP/VIAL ONE (06:44)
[2023-07-03] MEDS ORDERED: fentaNYL citrate PF 100 MCG/2 ML VIAL ONE (06:44)
--- NOTE | 2023-07-03 07:19 | History & Physical Bridge Note ---
Date of Service July 03, 2023 History & Physical Bridge Note I have examined the patient, reviewed the History & Physical and in the interval since the performance of the History & Physical I have noted the following changes of clinical significance: no changes noted
[2023-07-03] MEDS ORDERED: CITRIC ACID/SODIUM CITRATE 15 ML UDC ONE (07:25)
[2023-07-03] MEDS ORDERED: ePHEDrine sulfate 50 MG/5 ML SYR ONE (07:58)
[2023-07-03] MEDS ORDERED: PROMETHAZINE HCL 6.25 MG in SODIUM CHLORIDE 0.9% 50 ML IV PRN (07:59)
[2023-07-03] MEDS ORDERED: LACTATED RINGER'S 500 ML IV PRN (07:59)
[2023-07-03] MEDS ORDERED: NALOXONE HCL 1 MG in SODIUM CHLORIDE 0.9% 1,000 ML IV PRN (07:59)
[2023-07-03] MEDS ORDERED: NALOXONE HCL 0.08 MG in SYRINGE 1.8 ML IV PRN (07:59)
[2023-07-03] MEDS ORDERED: ePHEDrine sulfate 50 MG/ML AMP IV PRN (07:59)
[2023-07-03] MEDS ORDERED: HYDROmorphone INJ 0.5 MG/0.5 ML SYR IV PRN (07:59)
[2023-07-03] MEDS ORDERED: MoRPHine SULFATE PF 1 MG/ML 10 ML AMP/VIAL INT SPINAL ONE (07:59)
[2023-07-03] MEDS ORDERED: ONDANSETRON INJ 2 MG/ML 2 ML VIAL IV PRN (07:59)
[2023-07-03] MEDS ORDERED: NALOXONE HCL 0.4 MG/1 ML VIAL/CARP IV PRN (07:59)
[2023-07-03] MEDS ORDERED: NO NARCOTICS OR SEDATIVES SCH (08:00)
[2023-07-03] MEDS ORDERED: DC INTRASPINAL MORPHINE SCH (08:00)
[2023-07-03] MEDS ORDERED: SODIUM CHLORIDE 0.9% 1,000 ML IV SCH (08:00)
[2023-07-03] MEDS ORDERED: diphenhydrAMINE 50 MG/ML VIAL ONE (08:00)
[2023-07-03] MEDS ORDERED: METHYLERGONOVINE MALEATE 0.2 MG/ML AMP ONE (08:12)
[2023-07-03] MEDS ORDERED: METHYLERGONOVINE MALEATE 0.2 MG/ML AMP IM STA (08:27)
--- NOTE | 2023-07-03 08:45 | Operative Report ---
PG Post Operative Report Pre & Post Diagnosis Operation Date: 07/03/23 07:30 Pre-Op Diagnosis: History of Section x 3, Request for Sterilization Post-Op Diagnosis: History of Section x 3 Request for Sterilization I identified the patient and participated in the time-out.: Yes Procedure Operation Date: 07/03/23 07:30 Actual Procedures p Repeat lower transverse Section (Delivery of Baby Through Abdominal Incision) delivery of live male child at 0805 - Soila Dwyer MD, FACOG s with Bilateral Tubal Ligation - Soila Dwyer MD, FACOG Surgeon Soila Dwyer MD, FACOG Brush Or Broom Cutter Becky Oliver, BROADCAST PRODUCER Estimated Blood Loss 500 Findings Consistent with Post-Op Diagnosis viable male infant in cephalic presentation. apgars 9/10. nl uterus, tubes and ovaries. Fluids ivf--1500cc uop -250cc Specimens placenta bilateral tubes Drains millan Anesthesia Type Spinal Complications none Disposition Accompanied Patient To Recovery: Yes Disposition: L&D Indications Patient at 30 weeks with hx of c/s x 3. Also desires sterilization. Description of Procedure The patient was taken to the operating room where she was identified verbally and by bracelet. She was seated on the operating table where a spinal anesthetic was placed by anesthesia. She was then placed in the supine position with a leftward tilt. A Millan catheter was placed sterilely. the patient was prepped and draped in a normal standard fashion. the anesthetic was tested and found to be adequate. A time-out was held, identifying correct patient, procedure, positioning and preoperative antibiotics. There were no concerns. A Pfannenstiel skin incision was made with a knife and taken down to the underlying layer of fascia with the knife and Bovie electrocautery. Bleeding was attended to with the Bovie. The fascia was incised in the midline with the knife and taken out laterally with scissors. The superior edge of the fascial incision was grasped, elevated and the underlying layer of rectus muscle was taken off bluntly and with scissors. In a similar fashion, the inferior edge of the fascial incision was grasped, elevated and the underlying layer of rectus muscle was taken off bluntly and with scissors. The muscles were sharply in the midline. The peritoneum was entered bluntly. The incision was then stretched. The bladder blade was placed. The vesicouterine peritoneum was identified, entered with scissors and taken out laterally with scissors. The bladder flap was created digitally A hysterotomy incision was scored with a knife and the incision was stretched superiorly and inferiorly with the nozzle operator's fingers. The operators hand was placed into the incision and the head was delivered atraumatically. No nuchal cord. The nose and mouth were bulb suctioned. the rest of the was then delivered without difficulty. The nose and mouth were again bulb suctioned. The cord was clamped and cut and the was then handed off to the awaiting food expeditor for drying and attention. Cord blood and segment were obtained. The placenta was Manually extracted. The uterus was exteriorized and cleared of all clot and debris with moistened laparotomy sponges. The hysterotomy incision was repaired in one, running locked, layers. Hemostasis was noted to be good. Posterior cul-de-sac was irrigated and cleared of all clot and debris. The bilateral tubes were then removed using Ligasure first on the right and then on the left. Hemostasis at the site was good. The hysterotomy incision was again inspected and found to be hemostatic. the uterus was reinteriorized. Hysterotomy incision was again inspected and found to be hemostatic. Rectus muscles were reapproximated with several interrupted stitches of 0 Vicryl. The fascia was then reapproximated with 0 Vicryl starting at the edges and meeting in the midline. The subcuticular tissues were copiously irrigated and bleeding was attended to with cautery. The skin was then closed with 4-0 Vicryl in a subcuticular fashion. All sponge, lap and needle counts correct x 2. The patient was taken to the recovery room in stable condition. I attest to the content of the Intraoperative Record and any orders documented therein. Any exceptions are noted below.
--- NOTE | 2023-07-03 08:56 | Anesthesiology Progress Note ---
Date of Service July 03, 2023 Anesthesia Post Procedure Vital Signs Vital Signs: Temp Pulse Resp BP Pulse Ox 07/03/23 08:54 85 97 07/03/23 08:52 77 127/58 L 07/03/23 08:49 80 100 07/03/23 08:46 81 91 07/03/23 08:44 85 100 07/03/23 08:39 98 07/03/23 08:39 80 07/03/23 08:39 81 134/63 91 07/03/23 07:12 80 129/76 07/03/23 07:11 36.5 C 80 18 129/76 07/03/23 05:49 36.6 C 75 18 118/64 07/03/23 05:43 36.6 C 75 18 118/64 Transfer of Care Handoff Completed per policy Notes Mental Status: alert / awake / arousable Patient Amnestic to Procedure: No Nausea / Vomiting: adequately controlled Pain: adequately controlled Airway Patency, RR, SpO2: stable & adequate BP & HR: stable & adequate Hydration State: stable & adequate Neuraxial Anesthesia: was administered and sensory block is resolving Anesthetic Complications: no major complications apparent and Pt Satisfied with anesthetic care
[2023-07-03] MEDS ORDERED: MAGNESIUM HYDROXIDE SUSP 30 ML UDC PO PRN (09:47)
[2023-07-03] MEDS ORDERED: HYDROCORTISONE ACETATE 25 MG SUPP PR PRN (09:47)
[2023-07-03] MEDS ORDERED: DIPHTHERIA/TETANUS/PERTUSSIS Vaccine (Tdap, Age 7+yrs) 0.5mL SYR/VL IM ONE (09:47)
[2023-07-03] MEDS ORDERED: SENNA 8.6 MG TAB PO PRN (09:47)
[2023-07-03] MEDS ORDERED: BENZOCAINE 20% SPRY 85 APPLN/85 GM CAN EXT PRN (09:47)
[2023-07-03] MEDS: NALBUPHINE HCL INJ 10 MG/ML AMP IV PRN ×2 (09:48→11:11)
[2023-07-03] MEDS: KETOROLAC 30 MG/ML VIAL IV PRN ×2 (09:53→18:14)
[2023-07-03] MEDS: OXYTOCIN 20 UNITS in LACTATED RINGER'S 1,000 ML IV SCH ×2 (11:06→19:41)
[2023-07-03] MEDS ORDERED: NALBUPHINE HCL 5 MG in SYRINGE 0 ML IV PRN (15:46)
[2023-07-03] MEDS: diphenhydrAMINE 50 MG/ML VIAL IV PRN (15:51)
[2023-07-03] MEDS: SIMETHICONE 80 MG CHEW PO SCH ×2 (15:51→19:57)
[2023-07-03] MEDS: DOCUSATE SODIUM 100 MG CAP PO SCH (21:12)
[2023-07-04] MEDS: KETOROLAC 30 MG/ML VIAL IV PRN (01:08)
[2023-07-04] MEDS: diphenhydrAMINE 50 MG/ML VIAL IV PRN (01:09)
[2023-07-04] MEDS ORDERED: ONDANSETRON INJ 2 MG/ML 2 ML VIAL IV PRN (02:00)
[2023-07-04] MEDS ORDERED: KETOROLAC 30 MG/ML VIAL IV PRN (02:00)
[2023-07-04] MEDS ORDERED: diphenhydrAMINE Capsule 25 MG CAP PO PRN (02:00)
[2023-07-04] MEDS ORDERED: PROMETHAZINE HCL 25 MG in SODIUM CHLORIDE 0.9% 50 ML IV PRN (02:00)
[2023-07-04] MEDS ORDERED: diphenhydrAMINE 50 MG/ML VIAL IV PRN (02:00)
[2023-07-04] MEDS ORDERED: MEPERIDINE HCL 50 MG/ML CARP IV PRN (02:00)
--- NOTE | 2023-07-04 06:29 | Obstetrical Progress Note ---
Date of Service <Sherron Barclay MD - Last Filed: 07/04/23 07:17> July 04, 2023 Assessment & Plan <Sherron Barclay MD - Last Filed: 07/04/23 07:17> (1) Encounter for assessment: Plan Patient with the above mentioned history and findings was evaluated at bedside and found awake, alert, oriented in all spheres, afebrile, and in no acute distress. Vital signs showed no fever and blood pressures remained stable. Her blood type is A positive and today's hemoglobin is adequate at 9.9 g/dL. She is GBS negative and rubella immune. Overall, patient is doing well clinically. Will continue care. All questions were answered. <Soila Dwyer MD, FACOG - Last Filed: 07/04/23 07:21> (1) Encounter for assessment: Subjective <Sherron Barclay MD - Last Filed: 07/04/23 07:17> Bee is a 27 y/o female who is POD #1 following repeat delivery at 39 2/7 weeks with bilateral tubal ligation. She reports feeling well overall this morning. Refers moderate abdominal cramping & 4/10 pain well managed on analgesics. Voiding spontaneously. Has passed flatus but has not yet had a bowel movement. Tolerating meals overnight and able to ambulate some. Has some persistent lochia with some improvement this morning. Currently . Constitutional: no fever, no chills or no sweats Denies shortness of breath or difficulty breathing. Cardiovascular: no chest pain or no palpitations Breast: no breast pain Genitourinary (female): no dysuria Neurologic: no headache(s) Denies changes in vision. Physical Exam <Sherron Barclay MD - Last Filed: 07/04/23 07:17> General: Alert. Oriented to person, time, and place. Afebrile. No acute di stress. Eyes: pupils equal and reactive to light bilaterally, extraocular movements intact. Cardiac: Regular rate and rhythm, no murmurs/rubs/gallops. Respiratory: Clear to auscultation bilaterally. No increased work of breathing. Symmetrical chest rise. No respiratory distress. Abdomen: Soft, nontender, nondistended. Bowel sounds present. Low transverse surgical scar clean, without surrounding erythema or suppuration, and healing well. Uterus: Uterine fundus firm, mildly tender, and palpable below umbilicus. Lower Extremities: Mild bilateral swelling without pitting. No deep calf pain. Crescencio's negative bilaterally. Psych: Euthymic affect. Mood and affect congruence. Regular speech rate and content. Results & Data <Sherron Barclay MD - Last Filed: 07/04/23 07:17> Vital Signs (Past 12 Hours) Vital Signs Temp Pulse Resp BP Pulse Ox O2 Del Method 07/04/23 03:50 36.8 C 74 20 93/60 L 96 Room Air 07/04/23 01:45 20 97 07/04/23 00:55 20 97 07/04/23 00:55 36.9 C 75 20 99/61 L 97 Room Air 07/03/23 23:45 20 97 07/03/23 22:45 20 96 07/03/23 21:45 20 97 07/03/23 20:45 20 96 07/03/23 19:45 20 96 07/03/23 19:45 37.1 C 74 20 104/65 96 Room Air Supervising Physician <Soila Dwyer MD, FACOG - Last Filed: 07/04/23 07:21> Co-Signing Physician Notes Resident Physician Supervision Note: I interviewed and examined the patient. Discussed with Dr. Barclay and agree with findings and plan as documented in the note. Any exceptions or clarifications are listed here: Doing well. Postop day 1. Dressing was dry this am. Routine care. Documented By: Soila Dwyer MD, FACOG Resident Activity Tracking <Sherron Barclay MD - Last Filed: 07/04/23 07:17> Resident Involvement: Resident Care Provided Care Provided: OB Delivery
[2023-07-04 06:40] LABS: Basophils # (auto) 0.03 K/uL (0.00-0.20); Basophils % (auto) 0.3 %; Eosinophils # (auto) 0.06 K/uL (0.00-0.50); Eosinophils % (auto) 0.5 %; Hematocrit (blood only) 30.6 % (37.0-47.0); Hemoglobin 9.9 g/dl (12.0-16.0); Immature Granulocytes # (auto) 0.07 K/uL (0.01-0.20); Immature Granulocytes % (auto) 0.6 %; Lymphocytes # (auto) 1.42 K/uL (1.20-3.40); Lymphocytes % (auto) 12.5 %; Mean Corpuscular Hemoglobin 30.2 pg (25.0-34.0); Mean Corpuscular Hgb Conc 32.4 g/dL (32.0-36.0); Mean Corpuscular Volume 93.3 fL (80.0-100.0); Mean Platelet Volume 9.4 fL (9.4-12.4); Monocytes # (auto) 1.04 K/uL (0.11-0.59); Monocytes % (auto) 9.1 %; Neutrophils # (auto) 8.75 K/uL (1.40-6.50); Platelet Count 233 K/uL (130-400); RDW Coefficient of Variation 14.7 % (11.5-14.5); RDW Standard Deviation 50.2 fL (36.4-46.3); Red Blood Count 3.28 M/uL (4.20-5.40); White Blood Count 11.37 K/ul (4.8-10.8)
[2023-07-04] MEDS: SIMETHICONE 80 MG CHEW PO SCH ×4 (07:34→20:13)
[2023-07-04] MEDS: FERROUS SULFATE 325 MG TAB PO SCH (07:35)
[2023-07-04] MEDS: DOCUSATE SODIUM 100 MG CAP PO SCH ×2 (07:35→20:13)
[2023-07-04] MEDS: PRENATAL VITAMIN 1 TAB PO SCH (07:35)
[2023-07-04] MEDS: IBUPROFEN 600 MG TAB PO PRN ×4 (07:35→21:51)
[2023-07-04] MEDS: oxyCODONE/ACETAMINOPHEN 5mg/325mg TAB PO PRN ×4 (07:35→21:50)
[2023-07-04] MEDS ORDERED: bisacodyL 5 MG TABEC PO SCH (20:00)
[2023-07-05] MEDS: IBUPROFEN 600 MG TAB PO PRN ×3 (01:33→08:32)
[2023-07-05] MEDS: oxyCODONE/ACETAMINOPHEN 5mg/325mg TAB PO PRN ×3 (01:34→08:33)
[2023-07-05 06:11] LABS: Hematocrit (blood only) 31.9 % (37.0-47.0); Hemoglobin 10.2 g/dl (12.0-16.0)
[2023-07-05] MEDS ORDERED: LEVOTHYROXINE SODIUM 25 MCG TABLET PO SCH (06:30)
--- NOTE | 2023-07-05 07:22 | Obstetrical Progress Note ---
Date of Service <Sherron Barclay MD - Last Filed: 07/05/23 07:22> July 05, 2023 Assessment & Plan <Sherron Barclay MD - Last Filed: 07/05/23 07:22> (1) Encounter for assessment: Plan Patient with the above mentioned history and findings was evaluated at bedside and found awake, alert, oriented in all spheres, afebrile, and in no acute distress. Vital signs showed no fever and blood pressures remained stable. Her blood type is A positive and today's hemoglobin is adequate at 10.2 g/dL. She is GBS negative and rubella immune. Overall, patient is doing well clinically. Will discharge today. She was counseled to call the OB office to schedule her 6 week pp follow up evaluation. discharge instructions discussed. All questions were answered. <Rhoda Mcdonnell MD, FACOG - Last Filed: 07/05/23 07:24> (1) Encounter for assessment: Subjective <Sherron Barclay MD - Last Filed: 07/05/23 07:22> Bee is a 27 y/o female who is POD #2 following repeat delivery at 39 2/7 weeks with bilateral tubal ligation. She reports feeling well overall this morning. Refers moderate abdominal cramping & 4/10 pain well managed on analgesics. Voiding spontaneously. Has passed flatus but has not yet had a bowel movement. Tolerating meals overnight and able to ambulate some. Has some persistent lochia with some improvement this morning. Currently . Constitutional: no fever, no chills or no sweats Denies shortness of breath or difficulty breathing. Cardiovascular: no chest pain or no palpitations Breast: no breast pain Genitourinary (female): no dysuria Neurologic: no headache(s) Denies changes in vision. Physical Exam <Sherron Barclay MD - Last Filed: 07/05/23 07:22> General: Alert. Oriented to person, time, and place. Afebrile. No acute distress. Eyes: pupils equal and reactive to light bilaterally, extraocular movements intact. Cardiac: Regular rate and rhythm, no murmurs/rubs/gallops. Respiratory: Clear to auscultation bilaterally. No increased work of breathing. Symmetrical chest rise. No respiratory distress. Abdomen: Soft, nontender, nondistended. Bowel sounds present. Low transverse surgical scar clean, without surrounding erythema or suppuration, and healing well. Uterus: Uterine fundus firm, mildly tender, and palpable below umbilicus. Lower Extremities: Mild bilateral swelling without pitting. No deep calf pain. Crescencio's negative bilaterally. Psych: Euthymic affect. Mood and affect congruence. Regular speech rate and content. Results & Data <Sherron Barclay MD - Last Filed: 07/05/23 07:22> Vital Signs (Past 12 Hours) Vital Signs Temp Pulse Resp BP Pulse Ox O2 Del Method 07/05/23 01:00 36.5 C 73 17 116/75 97 Room Air 07/04/23 20:00 36.6 C 84 16 126/78 96 Room Air Supervising Physician <Rhoda Mcdonnell MD, FACOG - Last Filed: 07/05/23 07:24> Co-Signing Physician Notes Resident Physician Supervision Note: I interviewed and examined the patient. Discussed with Dr. Barclay and agree with findings and plan as documented in the note. Any exceptions or clarifications are listed here: [None] Documented By: Rhoda Mcdonnell MD, FACOG Resident Activity Tracking <Sherron Barclay MD - Last Filed: 07/05/23 07:22> Resident Involvement: Resident Care Provided Care Provided: OB Delivery
[2023-07-05] MEDS: SIMETHICONE 80 MG CHEW PO SCH (08:32)
[2023-07-05] MEDS: FERROUS SULFATE 325 MG TAB PO SCH (08:32)
[2023-07-05] MEDS: DOCUSATE SODIUM 100 MG CAP PO SCH (08:32)
[2023-07-05] MEDS: PRENATAL VITAMIN 1 TAB PO SCH (08:32)
[2023-07-05] MEDS ORDERED: bisacodyL 10 MG SUPP PR PRN (08:41)
[2023-07-05] MEDS ORDERED: ONDANSETRON 4 MG OD TAB ONE (10:57)
--- NOTE | 2023-07-06 10:01 | Discharge Summary ---
Date of Service July 06, 2023 Admission HPI Per Admitting Provider Patient is a 27yowf who presents at 39 2/7 weeks for repeat c/s. She has had three previous c/s. The first was for distress with general anesthesia. 2 and 3 were repeats. She is requesting TL Patient has significant psych history listed as schizophrenia, bipolar d/o , anxiety and depression and PP depression. Patient had some significant issues earlier in the and was at one point on several medications. She has d/c all of these under the care of her physician. She notes alot of this was associated with her job which she has left. Notes she is in a much better place. Notes her mood is stable and good. and Delivery Plans Prior Section affecting delivery x 3 - Scheduled repeat at 39 weeks with tubal ligation. C/S WITH TUBAL SCHEDULED FOR 07/03/[address] HU[address]Y AND DR. MOORE ASSIST Hypothyroidism following prior . 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 NON-REACTIVE (NON-REACTIVE) 12/16/22 Hepatitis C Antibody (EIA) NON-REACTIVE (NON-REACTIVE) 12/16/22 HIV (1&2) Ab and P24 Ag, 4th Gener Neg (Neg) 08/14/20 HIV (1&2) Ag and Ab Confirmation NON-REACTIVE (NON-REACTIVE) 12/16/22 Glucose 1 Hour 50 gm Load 121 mg/dl (70-130) 04/19/23 OB Optional Labs: Chlamydia trachomatis RNA Not Detected (NotDetected) 12/16/22 Neisseria gonorrhoeae RNA Not Detected (NotDetected) 12/16/22 Thyroid Stimulating Hormone (TSH) 2.64 uIU/mL (0.30-4.50) 03/21/23 Labs Reviewed: CF/SMA negative in prior (01/31/18) maximilian cfdna-low risk--mln GBS negative--[facility] Discharge Data Consultations 07/03/23 05:50 Consult Anesthesiology Stat Procedures Performed Operation Date: 07/03/23 07:30 Actual Procedures p Section (Delivery of Baby Through Abdominal Incision) delivery of live male child at 0805 - Soila Humphrey MD, FACOG s with Bilateral Tubal Ligation - Soila Humphrey MD, [facility] Course (1) with 39 completed weeks gestation: (2) Sterilization consult: (3) Previous delivery affecting , antepartum: Plan Patient was admitted and underwent a repeat lower transverse c/s without incident, ebl 500cc, nl uterus/tubes and ovaries, male baby. Her course was uncomplicated--tolerated a regular diet, ambulated without difficulty, voided after removal of her millan catheter, tolerated po pain meds. discharge h/h 10.2/31.9. Admitted on 07/03, d/c on 07/05. f/u in office in 6 weeks. Coding Level of Care Code None Diagnoses with 39 completed weeks gestation Z3A.39 Sterilization consult Z30.09 Previous delivery affecting , antepartum O34.219
== END 2023-07-05 11:34 | disposition home or self-care (01) | DRG 785 ==
LOC: 4S1 05:34 → EDSTATUS 09:20 → 4E2 11:25
PROC: M.PPTLD (2023-07-03 07:30)